=== PATIENT | female | born 1970 | race Caucasian/White ===

== ENCOUNTER 2018-08-28 14:33 | Outpatient (CLI) ==
[2016-03-26 09:23] VITALS: BMI 45.7
--- NOTE | 2018-08-28 15:02 | DI ---
EXAM: PA and lateral views of the chest HISTORY: Cough. COMPARISON: Chest x-ray 08/25/2018 and 01/10/2013 FINDINGS: The cardiomediastinal silhouette is normal. There is no pneumothorax or pleural effusion. There is the right middle lobe ground-glass consolidation. This is unchanged. The osseous structu res demonstrate degenerative disease of the spine. IMPRESSION: Consolidation is noted in the right middle lobe which is stable when compared to prior e xam that may represent pneumonia versus atelectasis.
== END 2018-08-28 14:34 | disposition home or self-care (01) ==
LOC: RAD 14:33
PROVIDERS: ATTEND Family Medicine
DX: R05 Cough (principal)

== ENCOUNTER 2018-09-02 15:18 | Outpatient (CLI) ==
[2016-03-26 09:23] VITALS: BMI 45.7
--- NOTE | 2018-09-02 15:43 | DI ---
EXAM: Two views of the chest. History: Follow-up pneumonia Comparison: Chest radiograph 08/28/2018 Findings: No change in the opacity within the medial right lower lung. No appreciable pleural fluid and no pneumothorax. No acute osseous abnormalities. Heart size is normal. Impression: No change in the opacity within the medial right lower lung. Recommend further evaluati on with IV contrast enhanced chest CT.
== END 2018-09-02 15:19 | disposition home or self-care (01) ==
LOC: RAD 15:18
PROVIDERS: ATTEND Family Medicine
DX: J18.9 Pneumonia, unspecified organism (principal)

== ENCOUNTER 2018-09-06 07:54 | Outpatient (CLI) ==
[2016-03-26 09:23] VITALS: BMI 45.7
--- NOTE | 2018-09-06 09:27 | CT ---
EXAM: CT of the chest without contrast History: Pneumonia Comparison: Chest radiograph 09/02/2018 Technique: Multiplanar CT images through the thorax were obtained following administration of IV con trast. Findings: Heart size is normal. No pericardial effusion. No thoracic aortic aneurysm. No patholog ically enlarged thoracic lymph nodes. No consolidation. No pleural fluid and no pneumothorax. No s uspicious lung masses or lung nodules. There is subsegmental atelectasis within the lower lungs whic h is mild. Prominent pericardial fat pad. Within the visualized upper abdomen, status post cholecystectomy. No acute osseous abnormalities. 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 Impression: 1. No acute intrathoracic process. 2. Prominent pericardial fat pad accounts for the abnormality seen on recent chest radiograph.
== END 2018-09-06 07:55 | disposition home or self-care (01) ==
LOC: RAD 07:54
PROVIDERS: ATTEND Family Medicine
DX: J18.9 Pneumonia, unspecified organism (principal)